=== PATIENT | male | born 1960 | race Hispanic/Latino ===

== ENCOUNTER 2017-09-17 16:01 | Emergency (ER) | payer MEDICARE ==
[2017-09-17 16:14] VITALS: BP 160/110
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
--- NOTE | 2017-09-17 17:25 | Cat Scan Report ---
FINAL REPORT EXAM: CT HEAD/BRAIN WO CON HISTORY: fall TECHNIQUE: CT head without contrast PRIORS: None. FINDINGS: No acute intra-axial or extra-axial hemorrhage is identified. There is no evidence of midline shift or mass effect. The ventricles and sulci are within normal limits. Belcher-white matter differentiation is intact. No acute parenchymal abnormalities seen. Bony calvarium is grossly intact. Visualized portions of the mastoids and paranasal sinuses are unremarkable. IMPRESSION: Negative CT head
--- NOTE | 2017-09-17 18:54 | XRay Report ---
FINAL REPORT EXAM: XR SHOULDER 2+V RT HISTORY: fall/pain/deformity TECHNIQUE: 2 views right shoulder PRIORS: None. FINDINGS: No fractures are identified. No dislocation seen. The acromioclavicular joint is intact. Adjacent bony and soft tissue structures are unremarkable. IMPRESSION: Negative shoulder series
== END 2017-09-17 18:30 | disposition home or self-care (01) ==
LOC: ED 16:01
DX: S46.911A Strain of unspecified muscle, fascia and tendon at shoulder and upper arm level, right arm, initial encounter (principal); S09.90XA Unspecified injury of head, initial encounter; Z88.2 Allergy status to sulfonamides; W01.0XXA Fall on same level from slipping, tripping and stumbling without subsequent striking against object, initial encounter; Y93.89 Activity, other specified; Y99.8 Other external cause status; Y92.89 Other specified places as the place of occurrence of the external cause
CPT/HCPCS: 70450